=== PATIENT | female | born 1970 | race Caucasian/White ===

== ENCOUNTER 2023-02-26 08:09 | Day surgery (SDC) | payer OTHER ==
[~2023-02-26 08:09] MED LIST: Lactated Ringers 1,000 ML IV SCH; Lidocaine 1% 5 ML VIAL ONE; Ondansetron 4 MG/2 ML SDV ONE; Propofol 200 MG/20 ML SDV ONE; Sodium Chloride 0.9% 10 ML Syringe FLUSH PRN; Sodium Chloride 0.9% 10 ML Syringe FLUSH SCH; Succinylcholine 200 MG/10 ML MDV ONE; fentaNYL 100 MCG/2 ML SDV ONE
[2023-02-26] MEDS ORDERED: Midazolam 1 MG/ML 2 ML SDV ONE (08:22)
[2023-02-26] MEDS ORDERED: Rocuronium 50 MG/5 ML Vial ONE (09:42)
[2023-02-26] MEDS ORDERED: ceFAZolin 2 GM Vial ONE (09:46)
[2023-02-26] MEDS ORDERED: HYDROmorphone 0.5 MG/0.5 ML Syringe IVPUSH PRN (10:03)
[2023-02-26] MEDS ORDERED: Naloxone 0.4 MG/ML SDV IVPUSH PRN (10:03)
[2023-02-26] MEDS ORDERED: Ondansetron 4 MG/2 ML SDV IVPUSH PRN (10:03)
[2023-02-26] MEDS ORDERED: fentaNYL 100 MCG/2 ML SDV IVPUSH PRN (10:03)
[2023-02-26] MEDS ORDERED: Bupivacaine 0.5% 10 ML SDV ONE (10:09)
[2023-02-26] MEDS ORDERED: Ropivacaine 0.5% 5 MG/ML 30 ML SDV ONE (10:09)
[2023-02-26] MEDS ORDERED: Lidocaine 1% 10 ML MDV ONE (10:09)
[2023-02-26] MEDS ORDERED: ePHEDrine 50 MG/ML SDV ONE (10:18)
[2023-02-26] MEDS ORDERED: HYDROmorphone 0.5 MG/0.5 ML Syringe ONE ×2 (10:23→10:47)
[2023-02-26] MEDS ORDERED: Lactated Ringers 1,000 ML ONE (10:24)
[2023-02-26] MEDS ORDERED: Ketorolac 30 MG/ML SDV ONE (11:24)
[2023-02-26] MEDS ORDERED: Dexamethasone 4 MG/ML 5 ML MDV ONE (11:24)
[2023-02-26] MEDS ORDERED: oxyCODONE 5 MG Tab PO SCH (15:15)
== END 2023-02-26 15:45 | disposition home or self-care (01) ==
LOC: JD.SDS 08:09
PROVIDERS: ATTEND Podiatrist Foot & Ankle Surgery
DX: M76.62 Achilles tendinitis, left leg (principal); M77.52 Other enthesopathy of left foot and ankle; M21.6X2 Other acquired deformities of left foot; M21.962 Unspecified acquired deformity of left lower leg; I10 Essential (primary) hypertension; E78.5 Hyperlipidemia, unspecified; I25.2 Old myocardial infarction; E66.9 Obesity, unspecified; Z68.39 Body mass index [BMI] 39.0-39.9, adult; K21.9 Gastro-esophageal reflux disease without esophagitis; Z79.82 Long term (current) use of aspirin; Z79.899 Other long term (current) drug therapy
CPT/HCPCS: 27654; 27687; 28118; A9270; J0330; J0665; J0690; J1100; J1170; J1885; J2250; J2405; J2704; J2795; J3010; J7120; C1713; J3490